=== PATIENT | female | born 1975 | race Caucasian/White ===

== ENCOUNTER 2019-06-18 12:30 | Outpatient (RCR) | payer BC, SELFPAY ==
--- NOTE | 2019-06-04 14:05 | PTOPEVAL ---
INITIAL PHYSICAL THERAPY EVALUATION and PLAN OF CARE Thank you for referring Lea to [facility]. Lea will be seen in PT 2x/wk x 4 wks. Please review, sign, date and return this plan of care JULIETA. I agree with and certify that the following plan of care is medically necessary. Referring Physician Date Admitting Provider: Attending Provider: Ambika Loomis DO Referring Provider: *PT Outpatient Evaluation Start: 06/04/19 12:44 Freq: Status: Active Protocol: Document 06/04/19 12:44 GERONIMO (Rec: 06/04/19 14:03 GERONIMO [id number]) Therapy Assessment Status Assessment Status Assessment Status Evaluation Outpatient Past Medical History Neurological History Hx Neurological Disorders No Significant History Cardiovascular History Hx Cardiac Disorders No Significant History Respiratory History Hx Respiratory Disorders No Significant History Gastrointestinal History Hx Cholecystectomy Yes Genitourinary History Hx Genitourinary Disorders No Significant History Musculoskeletal History Hx Arthritis Yes: bilat knee Hx Back Pain Yes: initial episode 2016 Endocrine History Hx Endocrine Disorders No Significant History HEENT History Hx Ear Surgery Yes: at age 13 Reproductive History Hx Section Yes Other History Hx Other Surgeries Yes: wisdom teeth Evaluation Information Problem Diagnosis Radiculopathy, lumbar region Onset March 2016 - last episode Subjective Information Mar 2016 - getting out of van Query Text:As Reported By Patient/ - twisted getting out of van - Family unable to put wt on L foot - collapsed - unable to stand up straight - by time saw MD - most of the episode had gone away - has had 5 episodes since intial one This episode was difficulty - getting out of 's truck - he slammed on brakes hard, went to turn to R to get out of truck - felt pulling sensation - but increase in discomfort 3-4 hours afterwards. Inability to stand up straight , sit to stand, into/out of bed, difficulty with trunk rotation or looking down with head. Pain begins at L SIJ travels across buttock, down L
--- NOTE | 2019-06-13 09:20 | PCPTNOTE ---
Lea did not come to today's appointment - when called she stated that she had forgotten about the appointment. She is doing well, will just come in one time next week as well.
--- NOTE | 2019-07-02 15:54 | PCPTNOTE ---
PHYSICAL THERAPY DISCHARGE NOTE Admitting Provider: Attending Provider: Ambika Loomis DO Patient:Lea York Date of :1975 Lea has not returned for any further treatments since 06/18/2019, therefore she will be discharged at this time. Patient?s initial visit was on 06/04/2019 and she had a total of 3 visits. The goals have been met. When Lea was last seen she was only having discomfort with a sneeze. Pain would then quickly go up to 7/10 - but then come back down to 0/10. She was having no difficulty with mobility of trunk, with ADLs or IADLs. She was independent and compliant with her HEP. Modified Oswestry LBP Questionnaire - 0% Thank you for referring Lea to [facility]. Please review, sign, date and return this discharge summary JULIETA. I have been updated about Lea's current status and I agree with discharge from the above service at this time. Referring Physician Date
== END 2019-09-02 23:59 | disposition home or self-care (01) ==
LOC: ANHHIPT 12:30
PROVIDERS: PCP Family Medicine; Visit Provider Family Medicine
DX: M54.16 Radiculopathy, lumbar region (principal)
CPT/HCPCS: 97110; 97140; 97161

== ENCOUNTER 2020-04-28 09:42 | Outpatient (CLI) | payer BC, SELFPAY ==
--- NOTE | 2020-04-30 12:45 | WPDHOLTEREM ---
Holter/Event Monitor Holter/Event Monitor Date of procedure: 04/28/20 Procedure Type: 24 holter monitor Indications: Palpitations Conclusion: 1. 24 hour holter monitor on 04/28/20. 2. Underlying rhythm is sinus rhythm. HR range 45-128 bpm; average HR 72 bpm. 3. There are 6 premature supraventricular complexes. No supraventricular tachycardia. 4. There is one premature ventricular complex. No ventricular tachycardia. 5. No sinoatrial or atrioventricular blocks. No significant pauses greater than 2 seconds. 6. Patient reports fast heart rate and skipped beats which demonstrate sinus rhythm, HR range 88-92 bpm.
== END 2020-04-28 09:43 | disposition home or self-care (01) ==
PROVIDERS: PCP Family Medicine; Visit Provider Family Medicine
DX: R00.2 Palpitations (principal)
CPT/HCPCS: 93225; 93226

== ENCOUNTER 2020-06-21 10:00 | Outpatient (RCR) | payer BC, SELFPAY ==
--- NOTE | 2020-05-12 15:24 | PTOPEVAL ---
INITIAL PHYSICAL THERAPY EVALUATION and PLAN OF CARE Thank you for referring Lea York to [facility].? Lea is scheduled to be seen for physical therapy? 1x/week for 1 week, then once again in 2 weeks. Please review, sign, date and return this plan of care JULIETA. I agree with and certify that the following plan of care is medically necessary. Referring Physician Date Admitting Provider: Attending Provider: Ambika Loomis DO Referring Provider: *PT Outpatient Evaluation Start: 05/12/20 14:05 Freq: Status: Active Protocol: Document 05/12/20 14:05 GERONIMO (Rec: 05/12/20 15:24 GERONIMO [id number]) Therapy Assessment Status Assessment Status Assessment Status Evaluation Outpatient Past Medical History Past Medical History Source of Past Medical History Recalled from Previous Visit, Confirmed with Patient/Family Neurological History Hx Neurological Disorders No Significant History Cardiovascular History Hx Cardiac Disorders No Significant History Respiratory History Hx Respiratory Disorders No Significant History Gastrointestinal History Hx Cholecystectomy Yes Genitourinary History Hx Genitourinary Disorders No Significant History Musculoskeletal History Hx Arthritis Yes: bilat knee Hx Back Pain Yes: initial episode 2017 Endocrine History Hx Hypothyroidism Yes HEENT History Hx Eye Surgery Yes: at age 13 Reproductive History Hx Section Yes: 2010 Other History Hx Other Medical Conditions Yes: COVID - 03/22/2020 - exposed late February Hx Other Surgeries Yes: wisdom teeth Evaluation Information Problem Diagnosis dorsalgia Onset Apr 22 or Subjective Information reaggravated with getting out Query Text:As Reported By Patient/ of 's truck again. Was Family really good x 6 months with using proper body mechanics, not as good from 6-9 months - then not good after that. Admits to increase with trunk rotation when grabbing purse which is heavy. Side effects from COVID - heart palpatations, nose was burning sensation, lost sense of smell - panic attacks - is being monitored by Sleeping - not having any difficulties now. Some tightness first thing in morning - may also have
--- NOTE | 2020-06-21 10:56 | PTOPEVAL ---
PHYSICAL THERAPY DISCHARGE SUMMARY Thank you for referring Lea York to [facility].? Lea was seen x 3 visits. All goals have been met and she is doing well. HEP was reviewed and upgraded this date - performs it well. I agree with Lea's discharge from PT. Referring Physician Date Admitting Provider: Attending Provider: Ambika Loomis DO Referring Provider: Therapy Assessment Status Assessment Status Assessment Status Discharge Evaluation Information Problem Diagnosis dorsalgia Subjective Information Lea reports that she is Query Text:As Reported By Patient/ doing well. Not having any Family pain or discomfort. She has been very busy last few weeks - no discomfort with increase in activity. Hasn't been doing much prolonged sitting - but did so the other night - no discomfort. She did teach her father proper body mechanics when getting out of her 's truck. Pain Assessment Self Report Self Report Pain Level 0 Pain Score Pain Score 0: Self Report Cervical and Lumbar ROM Lumbar ROM Lumbar Flexion (0-90) 90 Query Text:Active in Degrees Lumbar Extension (0-40) 20 Query Text:Active in Degrees Lumbar Lateral Flexion Right (0-40) 25 Query Text:Active in Degrees Lumbar Lateral Flexion Left (0-40) 25 Query Text:Active in Degrees Lumbar Comments no pain with trunk AROM equal SIJ mobility PT Clinical Summary Clinical Summary Protocol: PTEVCODE PT Clinical Summary Lea is doing well - maintaining SIJ symmetry and mobility, doing well with core stabilization exercises, and increased awareness of body mechanics. She is ready for d /c from PT to HEP. Did review self correction techniques with her again today in case if her pelvis/sacrum goes off in the future.
== END 2020-07-01 11:00 | disposition home or self-care (01) ==
LOC: ANHHIPT 10:00
PROVIDERS: PCP Family Medicine; Visit Provider Family Medicine
DX: M54.9 Dorsalgia, unspecified (principal)
CPT/HCPCS: 97110; 97161

== ENCOUNTER 2021-06-24 08:21 | Outpatient (RCR) | payer BC, SELFPAY ==
--- NOTE | 2021-06-24 09:28 | PTOPEVAL ---
Thank you for referring Lea York to [facility] Pt referred to therapy due to dizziness and giddiness. She reports onset of symptoms 6 months ago. She reports limitations with head turns with driving only. She demonstrates normal BPPV and vestibular testing impairments. Demonstrates slight left eye nystagmus with saccades only. She was negative for reproducing her vertigo symptoms with testing. Please review, sign, date and return this plan of care JULIETA. I agree with and certify that the following plan of care is medically necessary. Referring Physician Date Attending Provider: Ambika Loomis, Diagnosis dizziness Onset 6 months Additional Evaluation Detail sinus issues-seasonal lazy eyes: 1 eye near sided and 1 far sided Subjective Information She is having issues with Query Text:As Reported By Patient/ driving when attempting to put Family her head against the head rest. She has issues with quick head turns especially with driving. Changes with her hormones. Reports recent change of tone when hearing words-especially songs, especially when music is lower. Pain Assessment Self Report Self Report Pain Level 0 Cervical and Lumbar ROM Cervical ROM Reason Not Measured WNL/Left,WNL/Right Cervical ROM Comments muscle tightness Balance Assessment Dynamic Gait Index Total Score (/) Vestibular Evaluation Past Vestibular History Sinus/Allergy Issues Medical History Comments rode on a roller coaster, thyroid condition Other Symptoms Comments change of tone when hearing words-especially songs Hearing Changes Fullness of Ear,Left,Right, Sudden Hearing Changes Symptoms Increase Quick Head Turns Symptoms Decrease Moving Slowly Types of Symptoms Spinning Standardized Tests Dizziness Handicap Inventory Standardized Test Scores (Number 0-100) 16 Vestibular Testing Smooth Pursuits Normal Saccades Nystagmus Sitting Head Thrust WNL Gaze Stabilization with Fixation WNL Gaze Stabilization without Fixation WNL Mathews-Hallpike Left WNL Mathews-Hallpike Right WNL Horizontal Roll Test in Supine Left WNL Horizontal Roll Test in Supine Right WNL General Exercise Exercise Description - ed on inner ear vestibular Query Text:Record Sets, Reps, canals and changes with sinus Resistance, and Position infection, head movement - discusse
--- NOTE | 2021-07-26 12:57 | PCPTNOTE ---
Admitting Provider: Attending Provider: Ambika Loomis DO Patient:Lea York Date of :1975 Discharge Note Patient has not returned for any further treatments since 06/24/2021, therefore she will be discharged at this time. Patient?s initial visit was on 06/24/2021 08:30 and she had a total of 1 visits. The goals were not established due to seen for eval only. Thank you for referring this patient to [facility]. Please review, sign, date and return this discharge summary JULIETA. I have been updated about the patient's current status and I agree with discharge from the above service at this time.
== END 2021-07-26 14:05 | disposition home or self-care (01) ==
LOC: ANHPT 08:21
PROVIDERS: PCP Family Medicine; Visit Provider Family Medicine
DX: R42 Dizziness and giddiness (principal)
CPT/HCPCS: 97162

== ENCOUNTER → 2021-11-29 06:59 | Outpatient (CLI) | payer BC, SELFPAY ==
--- NOTE | ~2021-11-29 | MR_ITS ---
EXAMINATION: MR brain/brain stem wo con DATE: 11/29/2021 07:37 INDICATION: Vertigo. Memory loss. TECHNIQUE: Magnetic resonance imaging (MRI) of the brain and brainstem was performed without intraven ous contrast. COMPARISON: None. FINDINGS: There is no intracranial hemorrhage, acute infarction, or abnormal intracranial mass lesion . The ventricles are normal in size. There is mild mucosal thickening in the paranasal sinuses. The o rbits are normal. The mastoid air cells are normal. IMPRESSION: 1. Normal brain. Reviewed, dictated and finalized at location A. IMPRESSION: 1. Normal brain.
--- NOTE | ~2021-11-29 | MM_ITS ---
EXAMINATION: MM diagnostic jayna BI w aline HISTORY: Lateral left breast pain TECHNIQUE: Full field and spot ML, MLO and CC 3-D tomosynthesis images of both breasts were performed and synthetic 2-D images were generated. CAD analysis was submitted and interpreted. COMPARISON: None BREAST PARENCHYMAL COMPOSITION: The breasts are heterogeneously dense, which may obscure small masses . FINDINGS: No suspicious mass or architectural distortion, malignant calcification, skin thickening or retraction or significant new or developing density is detected. Given the complaint of lateral left breast ultrasound, ultrasound of the upper outer and lower-outer quadrants of the left breast is recommended. IMPRESSION: 1. No mammographic evidence of malignancy 2. Lateral left breast pain; ultrasound of lateral half of left breast is recommended BI-RADS Category 0: Incomplete: Needs additional imaging evaluation. Reviewed, dictated and finalized at location A. IMPRESSION: 1. No mammographic evidence of malignancy 2. Lateral left breast pain; ultrasound of lateral half of left breast is recom mended BI-RADS Category 0: Incomplete: Needs additional imaging evaluation.
--- NOTE | ~2021-11-29 | US_ITS ---
US breast LT limited DATE: 11/29/2021 14:27 INDICATION: Lateral left breast pain TECHNIQUE: Real-time imaging of the upper outer and lower-outer quadrants of the left breast COMPARISON: 11/29/2021 bilateral diagnostic mammography FINDINGS: No suspicious mass or shadowing, cyst or other significant sonographic abnormality is noted . IMPRESSION: BI-RADS Category 1: Negative Recommendation: Routine mammographic screening Reviewed, dictated and finalized at Location A. Reviewed, dictated and finalized at location A.
== END ==
PROVIDERS: PCP Family Medicine; Visit Provider Family Medicine
DX: H53.2 Diplopia (principal); H53.9 Unspecified visual disturbance; R42 Dizziness and giddiness; N64.4 Mastodynia; R92.8 Other abnormal and inconclusive findings on diagnostic imaging of breast
CPT/HCPCS: 70551; 76642; 77062; 77066; G0279

== ENCOUNTER 2022-04-02 05:01 | Emergency (ER) | payer BC, SELFPAY ==
[2022-04-02 05:04] VITALS: BP 118/62; PULSE 103; RESP 16; TEMP 36.3; O2SAT 100
--- NOTE | 2022-04-02 05:20 | ED.FEMALEGU ---
HPI - Female Genitourinary General Chief complaint: Urogenital-Female Stated complaint: uti Time Seen by Provider: 04/02/22 05:10 History of Present Illness HPI Narrative: This is a 46-year-old female with past medical history of hypothyroidism, presenting the emergency department complaining of burning with urination and suprapubic pain. She first noted the pain last night; approximately 1 hour prior to arrival, she had 4 out of 10 cramping suprapubic pain with significant burning and what appeared to be blood in her urine. She denies fevers, nausea, vomiting or other abdominal pain. Related Data Home Medications Medication Instructions Recorded Confirmed sennosides 8.6 mg capsule (senna) 8.6 mg PO DAILY 11/07/19 03/16/22 ascorbate calcium (vitamin C) 500 500 mg PO DAILY 04/20/20 03/16/22 mg tablet multivitamin 1 tablet PO DAILY 04/20/20 03/16/22 cholecalciferol (vitamin D3) 125 125 mcg PO DAILY 06/04/21 03/16/22 mcg (5,000 unit) capsule cyanocobalamin (vitamin B-12) 1,000 mcg IM .COMPLEX 03/02/22 03/16/22 1,000 mcg/mL injection solution Allergies Allergy/AdvReac Type Severity Reaction Status Date / Time raw tomatoes Allergy Severe Anaphylaxis Uncoded 04/02/22 05:07 Review of Systems Review of Systems: CONSTITUTIONAL: Denies fever, chills, or sweats. CARDIOVASCULAR: Denies chest pain, palpitations, or edema. RESPIRATORY: Denies cough or dyspnea. GASTROINTESTINAL: Cramping suprapubic abdominal pain denies nausea, vomiting, or diarrhea. GENITOURINARY: dysuria and hematuria. SKIN: Denies rash or itching. MUSCULOSKELETAL: Denies back pain, joint pain, or myalgia. NEUROLOGIC: Denies headache, numbness, dizziness, or weakness. PSYCHIATRIC: Denies anxiety or depression. [facility] Past Medical History Medical History (Updated 04/02/22 @ 05:24 by Adebayo Huff MD) Family history of colon cancer Hypothyroidism Low serum HDL Paroxysmal SVT (supraventricular tachycardia) Vitamin B12 deficiency Surgical History Surgical History (Updated 04/02/22 @ 05:24 by Adebayo Huff MD) History of Family History Family History Mother Diabetes mellitus Hypertension Family history of type 2 diabetes mellitus Father Family history of mental disorder Grandparent Family history of glaucoma Family history of cardiovascular disease Family history of malignant neoplasm Carcinoma of colon Family history of kidney stones Family history of malignant neoplasm of breast Family history of type 2 diabetes mellitus Family history of lupus erythematosus Social History Social History Smoking status: Never smoker Alcohol intake: never Substance use: never Substance use type: does not use Lack of Transportation: No Lack of Food: Never True Current Housing: I Have Housing Concerned About Future Housing: No Difficulty Paying Gas/Electric Bills: No Difficulty Paying for Meds: No Currently Unemployed: No Education: High School Diploma/GED Difficulty w/ Childcare or Family Care: No Gender identity (if verbalized by the patient): Female Spiritual care concerns: No Agree to blood products: Yes Exam Narrative: GENERAL: Well-developed, well-nourished, and in no acute distress. HEAD: Normocephalic, atraumatic. EYES: PERRLA and EOMI. ENT: Mucous membranes moist. Oropharynx without tonsillar hypertrophy exudate or other lesions. CHEST: Clear to auscultation. No respiratory distress. No wheezes rales or rhonchi HEART: Regular rate and rhythm. No murmur heard. Normal peripheral pulses. ABDOMEN: Soft, mildly tender to palpation in the suprapubic region without rebound or guarding, nondistended, normal active bowel sounds. No CVA tenderness to palpation EXTREMITIES: Normal range of motion. No edema. SKIN: Warm, dry, no rash. NEURO: No focal deficits. Alert and orie
[2022-04-02] MEDS: PHENAZOPYRIDINE HCL 100 MG TABLET 200 MG PO (05:22)
[2022-04-02] MEDS: CEPHALEXIN 500 MG CAPSULE PO (05:22)
[2022-04-02 05:35] LABS: Appearance Urine Clear (Clear); Bilirubin Urine Negative (Negative); Blood Urine 3+ (Negative); Glucose Urine UA Negative (Negative); Ketones Urine Negative (Negative); Leukocyte Esterase Ur 1+ LEU/UL (Negative); Nitrate Urine Negative (Negative); Protein Urine 2+ mg/dL (Negative); Specific Grav Ur <= 1.005 (1.001-1.035); Urobilinogen Urine 0.2 mg/dL (<2.0)
[2022-04-02 05:45] LABS: Bacteria Urine Trace /hpf; RBC Urine 0-2 /hpf (0-2)
[2022-04-02 05:48] LABS: Add Urine Microscopic? YES; Color Urine Light Red (Yellow)
== END 2022-04-02 05:58 | disposition home or self-care (01) ==
PROVIDERS: Emergency Provider Preventive Medicine Aerospace Medicine; PCP Physician Assistant Medical
DX: N39.0 Urinary tract infection, site not specified (principal); R31.9 Hematuria, unspecified; E03.9 Hypothyroidism, unspecified; E53.8 Deficiency of other specified B group vitamins
CPT/HCPCS: 81001; 87077; 87086; 87186; 99283; A9270

== ENCOUNTER 2023-07-09 08:43 | Outpatient (CLI) | payer BC, SELFPAY ==
--- NOTE | ~2023-07-09 | CT_ITS ---
EXAMINATION: CT abdomen wo/w con DATE: 07/09/2023 09:10 INDICATION: Right flank pain. TECHNIQUE: Computed tomography (CT) of the abdomen was performed without and with 100 mL Omnipaque 35 0 intravenous contrast. Automated exposure control and iterative reconstruction technique were employ ed. The dose-length product was 452.48 mGy-cm. COMPARISON: None. FINDINGS: The visualized portions of the lung bases demonstrate mild atelectasis. A calcified right l kaylee nodule is consistent with old granulomatous disease. No pleural effusion. The heart size is jacob l. No pericardial effusion. The liver is normal. Calcifications in the spleen are consistent with old granulomatous disease. There are changes of cholecystectomy. The pancreas, adrenal glands, and kidne ys are normal. There is no urolithiasis. There are no dilated loops of bowel. The appendix is normal. There are no pathologically enlarged lymph nodes. There is no free intraperitoneal fluid. There is s evere spondylosis at L4-L5. IMPRESSION: 1. No etiology for the patient's symptoms. Reviewed, dictated and finalized at location E.
== END 2023-07-09 08:44 ==
PROVIDERS: PCP Physician Assistant Medical; Visit Provider Physician Assistant Medical
DX: R10.9 Unspecified abdominal pain (principal)
CPT/HCPCS: 74170; Q9967